=== PATIENT | female | born 2000 | race Caucasian/White ===

== ENCOUNTER 2023-01-20 08:41 | Emergency (ER) | payer BC, OTHER, SELFPAY ==
[2023-01-20 09:00] VITALS: BP 131/79; PULSE 76; RESP 18; TEMP 36.8; O2SAT 99; BMI 21.7
--- NOTE | 2023-01-20 09:06 | EXP.UTC ---
Discharge Plan Disposition Patient Disposition: Home, Self-Care Condition: Good Prescriptions Prescriptions: New azithromycin 250 mg tablet See Rx Instructions .ROUTE .COMPLEX Qty: 6 0RF Rx Instructions: For 250 mg dose pack: take 500 mg today (day 1), then 250 mg for 4 days (days 2-5). Stop Clindamycin Referrals Follow up/Referrals: Jama Carrera MD [Primary Care Provider] - See instructions Activity Restrictions/Add. Instructions Additional Instructions/Restrictions: If symptoms persist or worsen follow up with PCP. Clinical Impressions Clinical Impression: Strep pharyngitis Instructions Patient Instructions: DI for Strep Throat Discharge ED Provider: Liana Siddiqi [facility] HPI General Stated complaint: sore throat Time Seen by Provider: 01/20/23 08:59 History of Present Illness Provider Complaint: Pt relates that she has been taking Clindamycin for the past 5 days without any improvements to her strep symptoms. She relates that she went to the [facility] in [place] and tested positive for strep. She states that she has been taking the antibiotic as prescribed but continues to have sore throat. She denies rash or fever. Related Data Previous Rx's Medication Instructions Recorded azithromycin 250 mg tablet See Rx Instructions PO .COMPLEX #6 01/20/23 tabs Allergies Allergy/AdvReac Type Severity Reaction Status Date / Time No Known Allergies Allergy Verified 01/20/23 09:10 [facility] Disclaimer: The information contained in this section may have been updated after the patient was seen, as this information can be updated by other users. Social History Smoking Status: Never smoker alcohol intake: current current occupational status: employed Travel in the last 8 weeks: None ROS Obtained: Yes All systems reviewed & no additional complaints except as documented Constitutional Constitutional: Reports system reviewed and no additional complaints, except as documented Eyes Eyes: Reports system reviewed and no additional complaints, except as documented ENT Ears, Nose, Mouth, and Throat: Reports system reviewed and no additional complaints, except as documented, Reports as per HPI, Reports neck pain, Reports odynophagia and Reports sore throat Cardiovascular Cardiovascular: Reports system reviewed and no additional complaints, except as documented Respiratory Respiratory: Reports system reviewed and no additional complaints, except as documented Gastrointestinal Gastrointestingal: Reports system reviewed and no additional complaints, except as documented and odynophagia Genitourinary Female Genitourinary: Reports system reviewed and no additional complaints, except as documented Musculoskeletal Musculoskeletal: Reports system reviewed and no additional complaints, except as documented and Reports neck pain Integumentary/Breasts Skin/Breast: Reports system reviewed and no additional complaints, except as documented Neurologic Neurologic: Reports system reviewed and no additional complaints, except as documented Endocrine Endocrine: Reports system reviewed and no additional complaints, except as documented Hematologic/Lymphatic Henatologic/Lymphatic: Reports system reviewed and no additional complaints, except as documented Allergic/Immunologic Allergic/Immunologic: Reports system reviewed and no additional complaints, except as documented Physical Exam General General appearance: alert and in no apparent distress Head Head exam: atraumatic and normocephalic Eye Eye exam: Present normal appearance Expanded ENT Exam External ear exam: Present normal external inspection Nasal speculum exam: Bilateral: normal Mouth exam: Present normal external inspection Teeth exam: Present normal inspection Comment: soft palate petechia with ulcers noted in back of throat. Neck Neck exam: Present normal inspection Chest Chest inspection: Present normal inspection and symmetric chest wall
[2023-01-20 09:10] VITALS: BP 131/79; PULSE 76; RESP 18; TEMP 36.8; O2SAT 99
== END 2023-01-20 09:13 | disposition home or self-care (01) ==
PROVIDERS: Emergency Provider Nurse Practitioner Family; PCP Family Medicine
DX: J02.0 Streptococcal pharyngitis (principal)
CPT/HCPCS: 99204; 99212; G0463

== ENCOUNTER → 2023-04-27 12:14 | Outpatient (CLI) | payer OTHER, SELFPAY ==
[2023-04-27 14:01] LABS: HCG,Quantitative 18047 mIU/ml (0-5.42)
== END ==
PROVIDERS: PCP Family Medicine; Visit Provider Obstetrics & Gynecology
DX: Z34.91 Encounter for supervision of normal pregnancy, unspecified, first trimester (principal)
CPT/HCPCS: 36415; 84144; 84702

== ENCOUNTER → 2023-05-16 10:44 | Outpatient (CLI) | payer OTHER, SELFPAY ==
[2023-05-16 11:33] LABS: Basophils % 0.1 % (0.1-2.0); Eosinophils # 0.1 K/mm3 (0.0-0.4); Eosinophils % 0.6 % (0.1-12.0); Hematocrit 39.5 % (37.0-47.0); Hemoglobin 12.8 g/dL (12.2-16.2); Lymphocytes # 1.2 K/mm3 (0.7-4.5); Lymphocytes % 14.2 % (10-50); Mean Corpuscular HGB Conc 32.4 g/dL (31.8-35.4); Mean Corpuscular Hemoglobin 27.7 pg (27.0-31.2); Mean Corpuscular Volume 85.4 fl (81-99); Monocytes # 0.4 K/mm3 (0.1-1.0); Monocytes % 4.2 % (1.7-9.3); Neutrophils # 6.9 K/mm3 (1.8-7.8); Neutrophils % 80.9 % (37.0-80.0); Platelet Count 248 K/mm3 (142-424); Red Blood Count 4.63 M/mm3 (4.20-5.40); Red Cell Distribution Width 14.1 % (11.5-17.5); White Blood Count 8.6 K/mm3 (4.8-10.8)
[2023-05-17 06:13] LABS: Rubella Antibodies, IgG 4.69 index (Immune >0.99)
[2023-05-17 20:32] LABS: Rapid Plasma Reagin Ab Titer Non Reactive titer (NonRea<1:1)
[2023-05-18 12:45] LABS: HIV Screen 4th Generation wRfx Non Reactive
[2023-05-18 12:46] LABS: Hepatitis B Surface Antigen Negative; Hepatitis C Antibody Non Reactive
== END ==
PROVIDERS: PCP Family Medicine; Visit Provider Obstetrics & Gynecology
DX: Z34.91 Encounter for supervision of normal pregnancy, unspecified, first trimester (principal); Z3A.01 Less than 8 weeks gestation of pregnancy
CPT/HCPCS: 36415; 85025; 86593; 86703; 86762; 86850; 87086; 87088; 87186; 87340; 87380; G0432

== ENCOUNTER → 2023-05-16 16:34 | Outpatient (CLI) | payer OTHER, SELFPAY | PROVIDERS: Visit Provider Obstetrics & Gynecology | DX: Z34.90 Encounter for supervision of normal pregnancy, unspecified, unspecified trimester (principal) ==

== ENCOUNTER → 2023-08-11 12:57 | Outpatient (CLI) | payer OTHER, SELFPAY ==
--- NOTE | 2023-08-11 12:57 | US_ITS ---
PROCEDURE: US OB /MATERNAL DETAIL CLINICAL INDICATION: 20 week anatomy scan COMPARISON: No exams were available for comparison FINDINGS: Transabdominal sonographic images of the pelvis were obtained. From her established due date she is 20 weeks 2 days. Single viable intrauterine gestation. Cephalic position. Placenta: Posteriorplacenta grade 1. There is an average amount of fluid. MVP 3.8 cm. The cervix appears satisfactory. Closed and measuring 3.85 cm in length. Complete survey performed and was unremarkable on the submitted images as in PACS. No discrete anomalies identified on survey imaging by technologist. Active fetus. Three-vessel cord with satisfactory umbilical cord insertion. 4- chamber heart noted. Situs, aortic arch, LVOT, RVOT, three-vessel view appear normal. Survey of brain & ventricles Unremarkable. Cerebellum, thalamus, choroid plexus, cisterna magna appear normal. Face and neck survey unremarkable. Profile, nasion, lips and nose appeared normal. Diaphragm and chest views unremarkable. Abdomen: Both kidneys noted and unremarkable. Stomach and bladder noted and satisfactory. Spine: Survey of the spine satisfactory with no anomalies identified nor imaged. Cervical, thoracic, lower spine appear normal. Both arms and legs noted. Amniotic Fluid: Adequate. Measurements: Average ultrasound age 21weeks 0 days. Estimated due date by ultrasound age 0512/22/2023. Estimated weight 372g BPD = 21weeks 0 days HC = 21weeks 2days AC = 20weeks 6days FL = 20weeks 4days Growth Percentile= 70 Heart Rate = 144bpm Cerebellum = 20weeks 1day Humerus = 20weeks 5days HC/AC is 1.21 FL/BPD is 0.68 FL/AC is 0.21 IMPRESSION: 1. Viable fetus in the cephalic presentation with a posterior placenta grade 1. 2. The fluid is within normal limits. 3. Anatomical scan appears normal. 4. biometry is consistent with the dates. Dictated by: Barak Barnhart MD 08/13/2023 11:02 Barak Barnhart MD in [place] 08/13/2023 11:02
== END ==
LOC: RAD 12:57
PROVIDERS: PCP Family Medicine; Visit Provider Obstetrics & Gynecology
DX: Z34.92 Encounter for supervision of normal pregnancy, unspecified, second trimester (principal); Z3A.20 20 weeks gestation of pregnancy
CPT/HCPCS: 76811

== ENCOUNTER 2023-09-22 08:29 | Outpatient (CLI) | payer OTHER, SELFPAY ==
[2023-09-22 09:13] LABS: Basophils % 0.2 % (0.1-2.0); Eosinophils # 0.1 K/mm3 (0.0-0.4); Eosinophils % 0.8 % (0.1-12.0); Hematocrit 32.2 % (37.0-47.0); Hemoglobin 11.1 g/dL (12.2-16.2); Lymphocytes # 1.6 K/mm3 (0.7-4.5); Lymphocytes % 12.8 % (10-50); Mean Corpuscular HGB Conc 34.5 g/dL (31.8-35.4); Mean Corpuscular Hemoglobin 30.3 pg (27.0-31.2); Mean Corpuscular Volume 87.7 fl (81-99); Mean Platelet Volume 8.1 fl (7.4-10.4); Monocytes # 0.5 K/mm3 (0.1-1.0); Monocytes % 4.2 % (1.7-9.3); Platelet Count 220 K/mm3 (142-424); Red Blood Count 3.67 M/mm3 (4.20-5.40); Red Cell Distribution Width 14.2 % (11.5-17.5); White Blood Count 12.2 K/mm3 (4.8-10.8)
[2023-09-22 09:24] LABS: Glucose,Fasting 82 mg/dl (74-100)
[2023-09-22 12:25] LABS: Glucose 1 Hour 129 mg/dL (74-100)
== END 2023-09-22 23:59 ==
LOC: LAB 08:30
PROVIDERS: PCP Family Medicine; Visit Provider Obstetrics & Gynecology
DX: Z34.92 Encounter for supervision of normal pregnancy, unspecified, second trimester (principal); Z3A.26 26 weeks gestation of pregnancy
CPT/HCPCS: 36415; 82951; 85025

== ENCOUNTER 2023-11-17 08:52 | Outpatient (CLI) | payer OTHER, SELFPAY ==
--- NOTE | 2023-11-17 08:53 | US_ITS ---
PROCEDURE: US OB BIOPHYSICAL PROFILE CLINICAL INDICATION: LGA and Hypertension in COMPARISON: US US OB /MATERNAL DETAIL from 08/11/2023 FINDINGS: Transabdominal sonographic images of the uterus were obtained. From her established due date she is 34weeks 2days. The following parameters are obtained: Viable Fetus in the cephalic presentation with a posterior placenta grade 2. Average ultrasound age is 35weeks 1day Estimated weight 2,519g, 5 lb 9 oz. Measurements: heart Rate = 132bpm BPD = 35weeks 6days, 87 percentile HC = 35weeks 4days, 45 percentile AC = 34weeks 6days, 70 percentile FL = 34weeks 1day, 36 percentile HC/AC is 1.02 FL/BPD is 0.75 FL/AC is 0.21 60 percentile Amniotic fluid index: 13.65cm, MVP 4.54 cm. Qualitative AFV:2 Breathing movements: 2 Gross Body Movements: 2 Tone: 2 Biophysical profile score: 8 No obvious anomalies evident.Kidneys, bladder, stomach, four-chamber heart, three-vessel cord appear normal. The right adrenal gland appears prominent. IMPRESSION: 1. Viable fetus in the cephalic presentation with a posterior placenta grade 2. 2. The fluid is within normal limits with an amniotic fluid index of 13.65 cm, MVP 4.54 cm. 3. Biophysical profile is 8/8 with good breathing movement and movement seen. 4. There has been good interval growth. The fetus is average size measuring 60th percentile. 5. There is a prominence of the right adrenal gland and the linux administrator should be made aware of this for follow-up. Consider an MFM consult. Dictated by: Barak Barnhart MD 11/17/2023 12:34 Barak Barnhart MD in [place] 11/17/2023 12:34
== END 2023-11-17 23:59 ==
LOC: RAD 08:53
PROVIDERS: PCP Family Medicine; Visit Provider Internal Medicine
DX: O36.63X0 Maternal care for excessive fetal growth, third trimester, not applicable or unspecified (principal); O10.913 Unspecified pre-existing hypertension complicating pregnancy, third trimester; Z3A.34 34 weeks gestation of pregnancy
CPT/HCPCS: 76816; 76819

== ENCOUNTER 2023-11-23 08:52 | Outpatient (RCR) | payer OTHER, SELFPAY ==
--- NOTE | 2023-11-23 12:20 | HMH.PTOPEV ---
PT Outpatient Evaluation Rehab PT Outpatient Evaluation Start: 11/23/23 08:59 Freq: Status: Active Protocol: Document 11/23/23 08:59 FERNANDACONCEPCION (Rec: 11/23/23 12:20 CAMERON [id number]) E-signed By Jolene Reid, PT Outpatient Therapy Subjective History Subjective History Pt is a 22 y/o female who reports to PT for sciatic pain affecting . Pt reports she is 35 weeks , denies complications with . Pt reports insidious onset of left-sided low back pain that radiates into her left posterior hip to the back of her knee 2-3 weeks ago when she started nesting. Pt also reports intermittent numbness/tingling of her left foot. Pt reports pain is intermittent and aggravated by prolonged standing, walking, squatting and bending forward. Pt reports she just got a belly band which does seem to assist with pain. Pt states she returns to her OBGYN on Monday for a follow-up visit. Medical History: Hypertension, Depression, Anxiety Special tests: + slump test L New diagnosis of cancer in past 12 No months? Chief Complaint Pain,Paresthesia Symptom Type Ache,Sharp,Numbness,Tingling, Shooting Symptoms Relieved By Rest/Positioning,Heat,Brace/ Support Symptoms Aggravated By Sitting,Standing,Bending/ Stooping,Physical Activity, Walking Current Functional Limitations Housework,Sleeping,Standing, Sitting,Squatting,Walking Symptom Description Intermittent Level of pain today (0-10) 3 Pain scale - at its best (0-10) 0 Pain scale - at its worst (0-10) 10 Lumbopelvic Eval Posture Lumbar Spine Posture Standing Position Increased Lordosis Palapation tenderness bilateral lumbar spinal tenderness Yes buttock tenderness Yes: piriformis, glute med/min Lumbar/Sacral Palpation Findings Tenderness Accessory Movement L-spine Vertebrae Accessory Movements Central P/A [place],Left P/A that Elicit Symptoms [place] L4 bilateral L5 bilateral S1 bilateral Range of Motion Lumbar Spine Active Flexion Range of 60 Motion (degrees) Lumbar Spine Active Extension Range of 25 Motion (degrees) Left Lumbar Spine Lateral Flexion Active 15 Range of Motion (degrees) Right Lumbar Spine Lateral Flexion 15 Active Range of Motion (degrees) Manual Muscle Test Bilateral Knee Extension Strength Grade 5 Normal Knee Flexion Strength Grade 5 Normal Hip Flexion Strength Grade 5 Normal Hip Abduction Strength Grade 4 Good Hip Adduction Strength Grade 4 Good Hip Extension Strength Grade 4 Good Ankle Dorsiflexion Strength Grade 5 Normal Altered Sensation Comment equal and intact to light touch sensation bilaterally Oswestry Index Section 1 Pain Intensity The pain comes and goes and is moderate Section 2 Personal Care (Washing,Dresing) increase the pain, but I manage not to change my way of doing it Section 3 Lifting I can lift heavy weights, but it gives me extra pain Section 4 Walking I cannot walk at all without increasing pain Section 5 Sitting I can sit in any chair for as long as I like Section 6 Standing I have some pain on standing, but it does not increase with time Section 7 Sleeping I get pain in bed, but it does not prevent me from sleeping well Section 8 Social Life My social life is normal and gives me no extra pain Section 9 Traveling I get some pain when traveling , but none of my usual forms of travel m Section 10 Changing Degreee of Pain My pain is neither getting better or worse Score and Risk Level Oswestry Sc 16 Oswestry Risk Level Moderate Disability Outpatient Therapy Assessment Impairments Problems/Impairmments Palpation Tenderness,Impaired Range of Motion,Impaired Strength,Impaired Walking, Impaired Standing,Impaired Sitting,Impaired Household Care,Impaired Squatting, Impaired Bending,Subjective C/ O Pain,Impaired Self Care/Self Management Prognosis Rehab Potential Good Comment Pt provided with HEP to perform independently. Pt instructed to return to PT clinic if pain does not improve with HEP or worsens. Clinical Impression Consistent with Diagnosis Yes Short Term Goals Number of Weeks 2 Improve Self Care/Self Management Yes Patient to be Ind w/ HEP Yes Claims Counsel Goals Number of Weeks 4 Improve Oswestry Score Yes: 10 or less to improve overall QOL Decrease Subjective C/O Pain Yes: Improve pain at worst to 4/10 to improve overall QOL Outpatient Therapy Plan of Care Treatment Plan May Include Therapeutic Exercise Including Home Yes Exercise Program Manual Therapy Techniques Yes Neuromuscular Re-education Yes Therapeutic Activities to Return to Yes Previous Functional/Work Level ADL/Self Care Education Yes Thermal Modalities Yes Massage Yes Eval/Re-Eval Yes Frequency Times per week 1-2 Duration Number of Weeks 4 Addendums This patient is a candidate for social No or vocational rehab? Patient/Guardian verbally acknowledges Yes understanding of treatment program and consents to further treatment? Patient/Guardian verbally acknowledges Yes understanding of diagnosis, prognosis and goals for treatment? Eval Complexity PT Charges 74025 - Low Complexity Shoulder/Elbow Eval Shoulder Objective Measurements Elbow Objective Measurements PHYSICIAN CERTIFICATION: I certify the specified therapy services for Faviola Rodriguez are required, authorized, and reviewed every 30 days.
== END 2023-11-23 10:00 | disposition home or self-care (01) ==
LOC: PT 08:52
PROVIDERS: Visit Provider Obstetrics & Gynecology
DX: O26.893 Other specified pregnancy related conditions, third trimester (principal); Z3A.35 35 weeks gestation of pregnancy; M54.32 Sciatica, left side
CPT/HCPCS: 97110; 97163

== ENCOUNTER 2023-11-30 18:00 | Outpatient (CLI) | payer OTHER, SELFPAY | END 2023-11-30 23:59 | LOC: LAB.DROPOF 12-01 08:48 | PROVIDERS: PCP Obstetrics & Gynecology; Visit Provider Obstetrics & Gynecology | DX: O26.893 Other specified pregnancy related conditions, third trimester (principal); Z3A.36 36 weeks gestation of pregnancy | CPT/HCPCS: 86403 ==

== ENCOUNTER 2023-12-14 09:01 | Inpatient (IN) | payer OTHER, SELFPAY ==
[2023-12-14] VITALS (8 sets, daily range): BP systolic 138–155; BP diastolic 91–100; PULSE 98–115; RESP 17–20; TEMP 36.4–37.1; O2SAT 97–98; BMI 29.8; BMI 29.9
[2023-12-14 08:15] LABS: Microscopic, Urine URINE MICROSCOPIC (MICROSCOPIC)
[2023-12-14 08:18] LABS: Appearance,Urine CLEAR (Clear); Bilirubin,Urine Negative (Negative); Blood, Urine Negative (Negative); Color,Urine YELLOW (Yellow); Glucose,Urine (UA) Negative (Negative); Ketones,Urine Negative (Negative); Leukocyte Esterase,Urine Negative (Negative); Nitrate,Urine Negative (Negative); Protein,Urine Negative (Negative); Specific Gravity, Urine 1.025 (1.005-1.030); Urobilinogen,Urine 0.2 EU/dl (0.2)
[2023-12-14 08:37] LABS: Fetal Membrane Rupture (Rapid) Positive (Negative)
[2023-12-14 08:51] LABS: Bacteria,Urine Trace /lpf; Mucus,Urine Trace /lpf; RBC,Urine Occasional #/hpf (0-3)
[2023-12-14 08:52] LABS: Amphetamine/Metha Screen,Urine Negative ng/ml (<1000); Benzodiazepines Screen,Urine Negative ng/ml (<200)
[2023-12-14 08:53] LABS: Barbiturates Screen,Urine Negative ng/ml (<200); Methadone Screen,Urine Negative ng/ml (<300)
[2023-12-14 08:54] LABS: Cannabinoid Screen,Urine Negative ng/ml (<50)
[2023-12-14 08:55] LABS: Cocaine Screen,Urine Negative ng/ml (<300); Opiate Screen,Urine Negative ng/ml (<300)
[2023-12-14 08:56] LABS: Phencyclidine Screen,Urine Negative ng/ml (<25)
[2023-12-14] MEDS: NIFEdipine XL 30MG TABLET 30 MG PO (08:56)
--- NOTE | 2023-12-14 09:22 | EXP.HP ---
History of Present Illness *Admission Date: 12/14/23 *Reason for visit:: Labor *History of present illness: Faviola Rodriguez is a 22-year-old who presented to labor and delivery at 38w1d gestation. STEPHANY: 12/27/23 based on LMP c/w 8wk US. She came in this morning secondary to leakage of clear fluid around 630 this morning. Patient states that she feels like she is having about 2 contractions every 10 minutes. This has been complicated by a cardiac arrhythmia which she took 25 mg of metoprolol daily, and depression which was well-controlled with desvenlafaxine 50 mg daily. Her family history is significant for a history of hypospadias and her father and her brother. On presentation patient endorsed good movement and denies vaginal bleeding. A+, antibody negative, rubella immune, hepatitis B negative, hepatitis C negative, RPR negative, HIV negative, gonorrhea and Chlamydia negative, rubella immune, NILM on the Pap smear. 1 hour GTT: 129 GBS negative Growth ultrasound 11/17/23 at 34w2d: vertex, with a posterior grade 2 placenta. EFW was 2519 g, 5 pounds 9 ounces, 60th percentile.. BPD: 87%, HC: 45%, AC: 70%, FL: 36%. MVP: 4.54 cm. BPP: 03/28 [facility] visit for prominent adrenal gland and chronic hypertension -[facility] states that adrenal gland appears normal but recommend an abdominal ultrasound postdelivery for evaluation Visit on 11/29/2023 at 36 weeks and 0 days gestation. EFW: 2970 g, 6 pounds 5 ounces, 52nd percentile. Three-vessel cord, posterior placenta, MVP: 6.3 cm. BPP: 03/28. [facility] Disclaimer: The information contained in this section may have been updated after the patient was seen, as this information can be updated by other users. Medical History Hypertension Depression Anxiety Surgical History History of placement of ear tubes History of tonsillectomy and adenoidectomy Family History Grandfather Hypertension Father Hypospadias Brother Hypospadias Other Cancer Thyroid disorder Social History (Reviewed 12/08/23 @ 11:32 by Laura Gamboa [facility]) Smoking Status: Never smoker alcohol intake: never substance use type: denies use current occupational status: student Travel in the last 8 weeks: None Review of Systems Review of Systems Review of systems (narrative): Review of Systems Constitutional: Denies fever, chills, and sweats Eyes: Denies vision change/ pain Respiratory: Denies cough and shortness of breath Cardiovascular: Denies chest pain and lightheadedness Gastrointestinal: Admits abdominal pain/tightening with contractions. Denies nausea, vomiting. Genitourinary: Denies dysuria and incontinence. Endorses leakage of fluid. Denies vaginal bleeding Musculoskeletal: Denies shoulder pain and back pain Neurological: Denies change in speech or headaches Meds Home Medications and Allergies Home Medications Medication Instructions Recorded Confirmed Type desvenlafaxine succinate 50 mg 50 mg PO DAILY 04/12/23 12/08/23 History tablet,extended release 24 hr [id number] carb-vit K 1 tab PO DAILY 05/16/23 12/08/23 History 18 mg iron-400 mcg-500 mg tablet (One-A-Day Womens Formula) aspirin 81 mg tablet,delayed 81 mg PO DAILY 08/25/23 12/08/23 History release (Adult Low Dose Aspirin) metoprolol succinate 50 mg 25 mg PO DAILY 08/25/23 12/08/23 History tablet,extended release 24 hr New Prescriptions to Start Prescriptions: Allergies Allergy/AdvReac Type Severity Reaction Status Date / Time No Known Allergies Allergy Verified 12/08/23 11:31 Exam Data for Last 24 hours Vital signs and Labs for Last 24 Hours: Laboratory Results - last 24 hr 12/14/23 08:08: Urine Color Yellow, Urine Appearance Clear, Urine pH 6.0, Ur Specific [place] 1.025, Urine Protein Negative, Urine Glucose (UA) Negative, Urine Ketones Negative, Urine Blood Negative, Urine Nitrate Negative, Urine Bilirubin Negative, Urine Urobilinogen 0.2, Ur Leukocyte Esterase Negative, Urine RBC Occasional, Urine WBC 3-5, Ur Squamous Epith Cells 3-5, Urine Bacteria Trace, Urine Mucus Trace, Membrane Rupture Positive A, Urine Opiates Screen Negative, Urine Methadone Screen Negative, Ur Barbituates Screen Negative, Ur Phencyclidine Scrn Negative, Ur Amphetamines Screen Negative, U Benzodiazepines Scrn Negative, Urine Cocaine Screen Negative, U Marijuana (THC) Screen Negative I & O for Last 24 hours: Intake & Output 12/11/23 12/12/23 12/13/23 12/14/23 23:59 23:59 23:59 23:59 Weight 158 lb Narrative: General: patient is alert oriented in no acute distress and responds appropriately to questions. HEENT: NCAT, EOMI, moist mucous membranes, neck supple with full ROM Cardiovascular: RRR +S1/S2, no murmurs or rubs Pulmonary: Clear to auscultation bilaterally, nonlabored breathing, symmetric chest rise Abdominal: Gravid abdomen appropriate for gestation. No guarding, rebound, or tenderness noted. SVE: 1.5/40/-3/posterior/moderate. Extremities: trace edema, no tenderness or cyanosis noted Skin: Normal turgor, intact, warm. Negative for erythema, pallor, petechia, or lesions Neurologic: Negative for sensory or motor deficit Psychiatric: Normal affect, normal thought process, good judgment and insight, no depression or anxious mood appreciated. *Routine HEENT Exam Head: Present normocephalic and atraumatic Eye: Present EOMI, PERRL and normal accommodation; Absent conjunctival icterus, scleral injection, nystagmus or exophthalmos ENT: Present mucous membranes moist *Routine Respiratory Exam Respiratory: Present CTA bilaterally, normal respiratory effort, able to speak in complete sentences and symmetric chest movement; Absent accessory muscle use, decreased breath sounds, rales, respiratory distress, wheezes, distant breath sounds or diminished air movement *Routine Cardiovascular Exam Cardiovascular: Present RRR, Normal S1 and Normal S2; Absent murmur or gallop *Routine Abdominal Exam Abdominal: Present soft and normoactive bowel sounds; Absent tenderness, distended, rebound or guarding *Routine Rectal Exam Rectal:: deferred *Routine Genitalia Exam Genitalia:: normal female Assessment and Plan *Assessment and plan (1) Premature rupture of membranes: Status: Acute Qualifiers: PROM onset of labor timing: unspecified duration between rupture of membranes and onset of labor PROM gestational age: full term Qualified Code(s): O42.92 - Full-term premature rupture of membranes, unspecified as to length of time between rupture and onset of labor Category: Medical Code(s): O42.90 - Premature rupture of membranes, unspecified as to length of time between rupture and onset of labor, unspecified weeks of gestation (2) 38 weeks gestation of : Status: Acute Category: Medical Code(s): Z3A.38 - 38 weeks gestation of (3) SROM (spontaneous rupture of membranes): Status: Acute Category: Medical (4) Gestational hypertension: Status: Acute Qualifiers: Trimester: third trimester Qualified Code(s): O13.3 - Gestational [-induced] hypertension without significant proteinuria, third trimester Category: Medical Code(s): O13.9 - Gestational [-induced] hypertension without significant proteinuria, unspecified trimester (5) Cardiac arrhythmia: Status: Acute Category: Medical Code(s): I49.9 - Cardiac arrhythmia, unspecified (6) Anxiety: Status: Acute Category: Medical Code(s): F41.9 - Anxiety disorder, unspecified (7) Depression: Status: Acute Category: Medical Code(s): F32.A - Depression, unspecified Plan #38 weeks gestation #Premature rupture membranes -Monitor vitals -Admit to L&D for labor induction/augmentation -Initiate induction with high-dose Pitocin protocol at 3x 3 -External FHR and TOCO monitor -GBS negative/ Blood type: A+ -Hemoglobin: 10.7, Plt: 248 -Plan for epidural -Anticipate vaginal delivery of Male infant: Channing Beard -Plans to breast-feed -Undecided on contraception #Gestational hypertension #Cardiac arrhythmia -Previously taken metoprolol 25 mg throughout -Blood pressures were elevated on admission but did not meet criteria for severe range pressures -We will continue to follow blood pressures closely -PIH labs obtained -Initiate 30 mg of nifedipine daily -Patient was counseled extensively on preeclampsia and magnesium. She does not meet requirements for magnesium at this time but we will continue to follow her closely #Depression -Continue home medication -We will follow-up closely for depression exacerbation #Prominent adrenal gland -Recommend abdominal ultrasound of the infant postdelivery #Family history of hypospadias -Patient's father and brother have a history of hypospadias noted post delivery
[2023-12-14 09:51] LABS: Basophils % 0.3 % (0.1-2.0); Eosinophils # 0.1 K/mm3 (0.0-0.4); Eosinophils % 0.9 % (0.1-12.0); Hemoglobin 10.7 g/dL (12.2-16.2); Lymphocytes # 1.3 K/mm3 (0.7-4.5); Lymphocytes % 14.2 % (10-50); Mean Corpuscular HGB Conc 32.5 g/dL (31.8-35.4); Mean Corpuscular Hemoglobin 27.1 pg (27.0-31.2); Mean Corpuscular Volume 83.6 fl (81-99); Mean Platelet Volume 9.5 fl (7.4-10.4); Monocytes # 0.4 K/mm3 (0.1-1.0); Monocytes % 4.5 % (1.7-9.3); Neutrophils # 7.4 K/mm3 (1.8-7.8); Neutrophils % 80.1 % (37.0-80.0); Platelet Count 248 K/mm3 (142-424); Red Blood Count 3.95 M/mm3 (4.20-5.40); Red Cell Distribution Width 15.5 % (11.5-17.5); White Blood Count 9.3 K/mm3 (4.8-10.8)
[2023-12-14] MEDS: DEXTROSE 5%-LACTATED RINGERS 1,000 ML 125 ML IV (09:53)
[2023-12-14] MEDS: LACTATED RINGERS 1000ML 1,000 ML 500 ML IV (09:53)
[2023-12-14] MEDS: OXYTOCIN/RINGERS LACTATE 30 UNITS/500 ML BAG IV (10:02)
[2023-12-14 10:19] LABS: Alanine Aminotransferase 29 U/L (12-78); Albumin Level 3.4 g/dl (3.5-5.0); Albumin/Globulin Ratio 1.3 (1.1-1.8); Alkaline Phosphatase 227 U/L (38-126); Aspartate Amino Transferase 31 U/L (14-36); Bilirubin,Total 0.3 mg/dl (0.2-1.3); Blood Urea Nitrogen 10 mg/dl (7-17); Calcium 9.7 mg/dl (8.4-10.2); Carbon Dioxide 26 mmol/L (22.0-30.0); Chloride 106 mmol/L (98-107); Creatinine Clearance Estimated 143 mL/min (50-200); Estimated Glomerular Filt Rate 105 ml/min (>60); GFR (African American) 127 ML/MIN (>60); Globulin 2.7 g/dL (1.3-3.2); Glucose 78 mg/dl (74-100); Sodium 136 mmol/L (136-145); Total Protein,Serum 6.1 g/dl (6.3-8.2)
--- NOTE | 2023-12-14 13:04 | P.CONPHA_ITS ---
Pharmacy Intervention Comments: MEDICATION RECONCILIATION COMPLETED ON PATIENT USING EXTERNAL FILL HISTORY FROM PHARMACY AND LIST FROM CASE MANAGEMENT SOCIAL WORKER OFFICE. -STEVE ROSENBERGD
--- NOTE | 2023-12-14 13:04 | HMH.PHAINT1 ---
Pharmacy Intervention Comments: MEDICATION RECONCILIATION COMPLETED ON PATIENT USING EXTERNAL FILL HISTORY FROM PHARMACY AND LIST FROM DIRECTOR OPERATIONS BROADCAST OFFICE. -STEVE ROSENBERGD
--- NOTE | 2023-12-14 13:48 | EXP.LABOR.NO ---
Labor Note Subjective: Date: 12/14/23 Time: 13:48 irregular contractions Comment:: Patient is up to 18 milliunits of Pitocin. She states that she is very comfortable and not feeling contractions. Her cervical exam is unchanged. Patient was counseled and decision was made to discontinue Pitocin and give 1 dose of 50 mcg p.o. Cytotec Objective: NST:: Reactive Contractions:: infrequent Cervical Dilation:: 1 Effacement:: 50% Station: -3 Membranes: ruptured and spontaneously ruptured Fetus: Monitoring?: Yes monitoring type:: External Plan: Anesthesia for epidural?: No Plan for ?: No Continue to monitor?: Yes Start pushing?: No
[2023-12-14] MEDS: miSOPROStol 100MCG TABLET 50 MCG PO ×2 (14:15→20:11)
[2023-12-15] VITALS (9 sets, daily range): BP systolic 134–159; BP diastolic 71–81; PULSE 71–123; RESP 16–18; TEMP 36.4–36.8; O2SAT 98–100
[2023-12-15] MEDS: PHA TO NURSING INSTRUCTION 1 EACH NOTAPPLIC (01:32)
[2023-12-15] MEDS: BUTORPHANOL TARTRATE 2 MG/ML VIAL 1 MG IV ×2 (01:32→04:44)
[2023-12-15] MEDS: OXYTOCIN/RINGERS LACTATE 30 UNITS/500 ML BAG IV (03:09)
[2023-12-15] MEDS: DEXTROSE 5%-LACTATED RINGERS 1,000 ML 125 ML IV (03:09)
--- NOTE | 2023-12-15 06:41 | EXP.ANES.CKL ---
[facility] Disclaimer: The information contained in this section may have been updated after the patient was seen, as this information can be updated by other users. Medical History Hypertension Depression Anxiety Surgical History History of placement of ear tubes History of tonsillectomy and adenoidectomy Family History Grandfather Hypertension Father Hypospadias Brother Hypospadias Other Cancer Thyroid disorder Social History (Updated 12/14/23 @ 20:41 by Nena Keller RN) Smoking Status: Never smoker alcohol intake: never substance use type: denies use current occupational status: employed Travel in the last 8 weeks: None [facility] Anesthesia Checklist Patient Identification Patient Identification: Arm Band Structural Data Admitted From: Inpatient Planned Operative Procedure/s: Labor Epidural Consent for Planned Operative Procedure(s) Verified: Yes Verified Documents: History and Physical NPO Status Verified Time NPO: 00:00 Additional verifications Anesthesia Reactions: No Airway Assessment Dentition: Good Dentition Neurological Assessment Level of Consciousness: Awake, Alert and Appropriate Anesthesia Plan Anesthesia Risk discussed: Yes Anesthesia Plan: Verified ASA Class: II Anesthesia Type: Epidural
[2023-12-15] MEDS: NIFEdipine XL 30MG TABLET 30 MG PO (09:02)
--- NOTE | 2023-12-15 09:15 | EXP.LABOR.NO ---
Labor Note Subjective: Date: 12/15/23 Time: 09:15 regular contraction Comment:: Doing well. Regular contractions. Very good working epidural. There is a fore bag present that was ruptured revealed clear fluid Objective: NST:: Reactive Contractions:: every 2-3 minutes Cervical Dilation:: 8-9 Effacement:: 90% Station: -2 Membranes: ruptured Fetus: Monitoring?: Yes monitoring type:: External Assessment: Labor progressing?: Yes Cephalopelvic disproportion?: No Plan: Anesthesia for epidural?: Yes Plan for ?: No Continue to monitor?: Yes Start pushing?: No
--- NOTE | 2023-12-15 16:36 | P.PN_ITS ---
Labor Note Subjective: Date: 12/15/23 Time: 16:36 regular contraction Comment:: Patient has been pushing for approximately 2 hours with little to no descent. The infant was felt to be OT and this was verified with ultrasound. The was rotated to an OA position greater than 1 hour ago and continues to not descend into the pelvis. She is still around a 0 to +1 station and not appropriate for operative delivery. Objective: NST:: Reactive Contractions:: every 2-3 minutes Cervical Dilation:: 9-10 Effacement:: 100% Station: 0 Membranes: ruptured Fetus: Monitoring?: Yes monitoring type:: External Assessment: Cephalopelvic disproportion?: Yes Plan: Anesthesia for epidural?: Yes Plan for ?: Yes Continue to monitor?: Yes Continue pushing?: No Comment:: I extensively counseled the patient on delivery. I reviewed the risks to include bleeding, infection, and injury to the surrounding structures. I discussed that bleeding was typically able to be controlled with medications or surgically. The patient consented to blood transfusion if deemed medically necessary. Reviewed the very rare risk of a hysterectomy if bleeding was not able to be controlled. She recently had a temperature of 100.0 at 1616. She will be given 2 g of Ancef along with 500 mg of IV azithromycin for infection prophylaxis. I discussed the risk of injury to the surrounding s tructures to include but not limited to the bowels, bladder, ureters, reproductive organs, and neurovascular bundles. I discussed the risk of repeat delivery with future pregnancies especially since this was an indication for failure to descend/suspected CPD. The patient and her significant other both voiced understanding. I reviewed that these risks were slightly elevated given that she had been pushing for 2 hours as compared to a scheduled delivery. The patient voiced understanding. I also discussed with her that at this time the heart rate was very reassuring a nd reactive and if she desired to continue pushing for an additional 1 to 2 hours that would be appropriate. Patient desires primary delivery at this time. Of note at this time her urethral area is very very swollen. Her bilateral labia are also very swollen from pushing. The patient was counseled and she will be provided ice packs . We will continue to monitor closely for fever and infection.
[2023-12-15] MEDS: LACTATED RINGERS 1000ML 1,000 ML 999 ML IV (16:48)
[2023-12-15] MEDS: CEFAZOLIN SODIUM 2 GM in 0.9 % SODIUM CHLORIDE 100 ML IV (17:15)
[2023-12-15] MEDS: AZITHROMYCIN 500 MG in 0.9 % SODIUM CHLORIDE 250 ML 250 MG IV (17:15)
--- NOTE | 2023-12-15 18:21 | P.OP_ITS ---
Date of procedure: 12/15/23 Pre-op Diagnosis:: 1. 38 weeks 2days gestation, H[place] 2. Gestational Hypertension 3. Premature rupture of membranes, spontaneous, clear fluid 4. Prolonged rupture of membranes, greater than 24 hours 5. Cardiac arrhythmia 6. Depression 7. Prominent adrenal gland noted on ultrasound 8. Failure to descend 9. Suspected cephalopelvic disproportion 10. GBS negative 11. Rh+ Post-op Diagnosis:: 1. 38 weeks 2days gestation, [place] 2. Gestational Hypertension 3. Premature rupture of membranes, spontaneous, clear fluid 4. Prolonged rupture of membranes, greater than 24 hours 5. Cardiac arrhythmia 6. Depression 7. Prominent adrenal gland noted on ultrasound 8. Failure to descend 9. Suspected cephalopelvic disproportion 10. GBS negative 11. Rh+ Procedure performed:: Primary Delivery Surgeon:: Amanda Hahn DO Quality Control Supervisor(s):: Nicole Hdz DO FUNDING SPECIALIST:: Seda Delcid Anesthesia: epidural Estimated blood loss (mL): 650 Operative findings:: 1. Live viable male infant: Channing. Weight: 7pounds 3ounces. Apgars 8 and 9 at 1 and 5 minutes respectively 2. Normal-appearing fallopian tubes and ovaries bilaterally Operative note:: Medications: 2 g of Ancef, 500mg IV Azithromycin Summary: Procedure explained in its entirety. The patient was counseled on the risks and benefits of section including bleeding, vascular injury, infection, and injury to the surrounding structures. Hemorrhage requiring life saving blood transfusion resulting in blood born viral infection or allergic reaction was explained and the patient consented to blood transfusion. Possible need for further operative measures prolonging recovery time and hospitalization reviewed to include hysterectomy. Procedure explained in its entirety and patient had no further questions. Consented to procedure. The patient was taken back to the operating room where adequate epidural anesthesia was obtained. Pneumatic compression stockings applied to lower extremities. Above listed medications were administered for infection prophylaxis. She was placed in the dorsal supine position Urinary catheter was placed and found to be draining clear urine. The patients abdomen and vagina were prepped and draped in sterile fashion. Anesthesia was tested and and found to be adequate. A Pfannenstiel skin incision was made with the scalpel. Subcutaneous bleeding vessels were cauterized with the bovie. The incision was taken down to the fascia with the bovie. The fascia was knicked in the midline and sharply extended laterally. The superior aspect of the fascia was grasped with Lizet clamps and the rectus muscle was taken down with the Bovie. The rectus muscle was sharply dissected from the midline with Mayos. There is a s mall amount of bleeding to the left aspect of the rectus muscles which were made hemostatic with the Bovie. This process was repeated inferiorly. The rectus muscles were in the midline, peritoneum was identified and entered bluntly. Jl O retractor was placed and the bladder was noted to be out of the operative field. The was felt to be wedged in the pelvis so prior to making a uterine incision a sterile hand below was placed to elevate the head. The lower uterine segment was easily identified, sharply incised, and entered bluntly with the surgeon's index finger. Incision was then extended in a superior and inferior fashion by blunt separation. Membranes were ruptured revealing clear fluid. The fetus was in cephalic presentation. The head was carefully elevated out of the pelvis. Fundal pressure was applied when head was brought into incision. The infants head was delivered without difficulty. The shoulder and body followed without complication. The mouth and nose were suctioned with a bulb. The umbilical cord was clamped and cut. Infant was taken to warmer for evaluation. Cord blood was collected. The placenta was delivered via fundal massage and found to be normal and intact. 3 vessel cord was noted. IV Pitocin was initiated. Inside of the uterus was gently cleared of blood and clots with lap sponge. The hysterotomy was closed with 0 Vicryl in a running locked fashion. A second imbricating layer was placed with 0 Vicryl. The lower uterine segment was visualized and noted to be hemostatic. The ovaries and tubes were found to be normal. The posterior aspect of the uterus was cleared of blood clot with a damp lap sponge. The gutters were inspected bilaterally and cleared of blood and clots with lap sponges. The uterine incision was reinspected and hemostasis noted. Jl O retractor was removed. The peritoneum was reapproximated using a 0 Vicryl in a nonlocked running fashion. The fascia was closed in a running nonlocked fashion using 0 Vicryl x2 meeting right of midline. Fascia was noted as not having gaps or defects. The subcutaneous fat was closed with 2-0 Monocryl in a running nonlocked fashion. Skin was closed with the INSORB suture in a subcuticular fashion. Patient tolerated the procedure well and all counts were correct x3, per nursing. Condition: stable Disposition: PACU Specimens:: 1. Placenta Complications:: None
--- NOTE | 2023-12-15 18:51 | P.PNANES_ITS ---
[facility] Anesthesia Record Part I Anesthesia Record I Intake, IV Amount: 1,000 Hydration: Adequate Estimated blood loss (mL): 700 Urine output (mL): 200 Blood Products used (#): none Blood Pressure: 134/77 SaO2: 98 Pulse Rate: 123 Airway Patency: Patent Respiratory Rate: 18 Temperature: 98.2 F Patient is:: Awake (Talking) and Stable Stable to PACU at:: 18:33
[2023-12-15] MEDS: OXYTOCIN/RINGERS LACTATE 30 UNITS/500 ML BAG 40 UNITS IV ×2 (19:02→19:40)
[2023-12-15] MEDS: ACETAMINOPHEN 500MG TAB 1000 MG PO (19:42)
[2023-12-16] MEDS: KETOROLAC 30MG/ML VIAL 30 MG IV ×3 (00:44→12:00)
[2023-12-16] MEDS: ACETAMINOPHEN 500MG TAB 1000 MG PO ×5 (00:44→23:45)
[2023-12-16 07:09] LABS: Basophils % 0.2 % (0.1-2.0); Eosinophils % 0.2 % (0.1-12.0); Hematocrit 25.4 % (37.0-47.0); Hemoglobin 8.3 g/dL (12.2-16.2); Lymphocytes # 1.7 K/mm3 (0.7-4.5); Lymphocytes % 9.7 % (10-50); Mean Corpuscular HGB Conc 32.8 g/dL (31.8-35.4); Mean Corpuscular Hemoglobin 27.3 pg (27.0-31.2); Mean Corpuscular Volume 83.2 fl (81-99); Mean Platelet Volume 9.6 fl (7.4-10.4); Monocytes # 0.6 K/mm3 (0.1-1.0); Monocytes % 3.5 % (1.7-9.3); Neutrophils # 14.8 K/mm3 (1.8-7.8); Neutrophils % 86.4 % (37.0-80.0); Platelet Count 307 K/mm3 (142-424); Red Blood Count 3.06 M/mm3 (4.20-5.40); Red Cell Distribution Width 15.8 % (11.5-17.5); White Blood Count 17.1 K/mm3 (4.8-10.8)
[2023-12-16 07:19] LABS: MANUAL DIFFERENTIAL MANUAL DIFFERENTIAL (MANUAL DIFF)
[2023-12-16 07:55] VITALS: BP 138/81; PULSE 98; RESP 18; TEMP 36.8; O2SAT 99
[2023-12-16] MEDS: OXYCODONE 5MG IMMEDIATE RELEASE TABLET 5 MG PO ×3 (08:32→23:48)
[2023-12-16] MEDS: NIFEdipine XL 30MG TABLET 30 MG PO (08:32)
--- NOTE | 2023-12-16 08:32 | EXP.ACUTE.PN ---
Subjective *Date: 12/16/23 *Time: 08:32 Interval history: POD # s/p PLTCS Faviola is feeling well this morning. Pain controlled. Breast feeding. Lochia appropriate. Voiding without difficulty. Passing flatus. Tolerating regular diet. Denies fever/chills, chest pain and shortness of breath. No headaches, vision chagnes, lightheadedness/dizziness. Admits to mild lower extremity swelling. No calf pain. Ambulating well adl ib. Medical Exam Vital signs and Labs for Last 24 Hours: Vital Signs Temp Pulse Pulse Resp BP BP Pulse Ox 12/15/23 18:58 98.1 F 102 H 16 153/78 H 98 12/15/23 18:52 98.2 F 123 H 18 134/77 12/15/23 18:48 103 H 16 144/74 H 98 12/15/23 18:38 109 H 16 159/73 H 98 12/15/23 18:28 98.2 F 122 H 16 134/77 98 O2 Del Method 12/15/23 18:58 Room Air 12/15/23 18:52 12/15/23 18:48 Room Air 12/15/23 18:38 Room Air 12/15/23 18:28 Room Air Intake and Output 12/15/23 12/16/23 12/16/23 23:59 07:59 15:59 Intake Total 1000 / 1000 Output Total 1800 / 1800 Balance -800 / -800 Intake: Intake, Total IV Amount 1000 / 1000 Output: Output, Urine Amount 1800 / 1800 Laboratory Results - last 24 hr 12/14/23 09:35: Blood Type A Positive, Antibody Screen Negative, Crossmatch (AHG) See Detail 12/16/23 06:52: WBC 17.1 H D, RBC 3.06 L, Hgb 8.3 L, Hct 25.4 L, MCV 83.2, MCH 27.3, MCHC 32.8, RDW 15.8, Plt Count 307, MPV 9.6, Neut % (Auto) 86.4 H, Lymph % (Auto) 9.7 L, Johnston % (Auto) 3.5, Eos % (Auto) 0.2, Baso % (Auto) 0.2, Neut # (Auto) 14.8 H, Lymph # (Auto) 1.7, Johnston # (Auto) 0.6, Eos # (Auto) 0.0, Baso # (Auto) 0.0 I & O for Labs for Last 24 Hours: Intake & Output 12/13/23 12/14/23 12/15/23 12/16/23 23:59 23:59 23:59 23:59 Intake Total 1000 / 1000 Output Total 1800 / 1800 Balance -800 / -800 Weight 158 lb 5.286 oz Head: Present atraumatic and normocephalic ENT: Present mucous membranes moist Neck: Present normal inspection and full ROM Respiratory: Present CTA bilaterally and normal respiratory effort Cardiac: Present Reg Rate and Rhythm GI: Present soft and normal bowel sounds; Absent distention, tenderness or guarding Comments:: Uterine fundus firm and below umbilicus, pfannenstiel incision clean/dry/intact Rectal (female): Present deferred (female): Present deferred Extremities: Present full ROM and edema (+1 bilateral lower extremity edema); Absent calf tenderness Neuro: Present alert, awake and moves all extremities Assessment and Plan *Assessment and plan (1) S/P section: Status: Acute Category: Surgical Code(s): Z98.891 - History of uterine scar from previous surgery (2) 38 weeks gestation of : Status: Acute Category: Medical Code(s): Z3A.38 - 38 weeks gestation of (3) Gestational hypertension: Status: Acute Qualifiers: Trimester: third trimester Qualified Code(s): O13.3 - Gestational [-induced] hypertension without significant proteinuria, third trimester Category: Medical Code(s): O13.9 - Gestational [-induced] hypertension without significant proteinuria, unspecified trimester (4) Premature rupture of membranes: Status: Acute Qualifiers: PROM onset of labor timing: unspecified duration between rupture of membranes and onset of labor PROM gestational age: full term Qualified Code(s): O42.92 - Full-term premature rupture of membranes, unspecified as to length of time between rupture and onset of labor Category: Medical Code(s): O42.90 - Premature rupture of membranes, unspecified as to length of time between rupture and onset of labor, unspecified weeks of gestation (5) Acute blood loss anemia: Status: Acute Category: Medical Code(s): D62 - Acute posthemorrhagic anemia Plan Continue routine care Encouraged increased ambulation Venofer 200 mg IV x 1 dose Continue Procardia. Continue to monitor BP Plan d/c home POD # 3
[2023-12-16] MEDS: METOPROLOL SUCCINATE XL 25MG TABLET 25 MG PO (08:33)
[2023-12-16] MEDS: SENNA 8.6MG TABLET 8.59999999999999964 MG PO (08:33)
[2023-12-16] MEDS: IRON SUCROSE COMPLEX 200 MG in 0.9 % SODIUM CHLORIDE 100 ML 220 MG IV (09:10)
[2023-12-16 09:14] LABS: Lymphocytes % 5 % (10-50); Monocytes % 2 % (2-9); Neutrophils % 93 % (42-76); Total Cells Counted 100
[2023-12-16 09:15] LABS: Platelet Estimate Normal; RBC Morphology Normal
[2023-12-16] MEDS: DESVENLAFAXINE SUCCINATE 50 MG 50 EACH PO (09:42)
[2023-12-16 15:50] VITALS: BP 141/84; PULSE 78; RESP 18; TEMP 36.8; O2SAT 99
[2023-12-16] MEDS: PRENATAL MULTIVITAMIN W/IRON 1 EACH PO (16:59)
[2023-12-16] MEDS: IBUPROFEN 400 MG TABLET 800 MG PO (18:28)
[2023-12-16 20:01] VITALS: BP 133/82; PULSE 86; RESP 18; TEMP 36.9; O2SAT 100
[2023-12-17] MEDS: IBUPROFEN 400 MG TABLET 800 MG PO ×3 (02:30→17:50)
[2023-12-17 04:00] VITALS: BP 127/77; PULSE 85; RESP 18; TEMP 36.8; O2SAT 98
[2023-12-17] MEDS: OXYCODONE 5MG IMMEDIATE RELEASE TABLET 5 MG PO ×2 (04:10→08:01)
[2023-12-17 08:00] VITALS: BP 132/81; PULSE 93; RESP 18; TEMP 36.8; O2SAT 96
[2023-12-17] MEDS: NIFEdipine XL 30MG TABLET 30 MG PO (08:01)
[2023-12-17] MEDS: DESVENLAFAXINE SUCCINATE 50 MG 50 EACH PO (08:01)
[2023-12-17] MEDS: METOPROLOL SUCCINATE XL 25MG TABLET 25 MG PO (08:01)
--- NOTE | 2023-12-17 11:00 | P.PN_ITS ---
Subjective *Date: 12/17/23 *Time: 11:00 Interval history: POD # 2 s/p PLTCS Faviola is feeling well this morning. Pain controlled. Breast feeding. Light lochia. Voiding without difficulty. Passing flatus. Tolerating regular diet. Denies fever/chills, chest pain and shortness of breath. No headaches, vision chagnes, lightheadedness/dizziness. Admits to mild lower extremity swelling. No calf pain. Ambulating well adl ib. Medical Exam Vital signs and Labs for Last 24 Hours: Vital Signs Temp Pulse Resp BP Pulse Ox O2 Del Method 12/17/23 08:00 98.2 F 93 H 18 132/81 96 Room Air 12/17/23 04:00 98.2 F 85 18 127/77 98 Room Air 12/16/23 20:01 98.5 F 86 18 133/82 100 Room Air 12/16/23 15:50 98.2 F 78 18 141/84 H 99 Room Air Laboratory Results - last 24 hr 12/14/23 09:35: Crossmatch (AHG) See Detail I & O for Labs for Last 24 Hours: Intake & Output 12/14/23 12/15/23 12/16/23 12/17/23 23:59 23:59 23:59 23:59 Intake Total 1000 / 1000 Output Total 1800 / 1800 Balance -800 / -800 Weight 158 lb 5.286 oz Head: Present atraumatic and normocephalic ENT: Present mucous membranes moist Neck: Present normal inspection Respiratory: Present CTA bilaterally and normal respiratory effort Cardiac: Present Reg Rate and Rhythm GI: Present soft and normal bowel sounds; Absent distention or tenderness Comments:: Uterine fundus firm and below umbilicus, pfannenstiel incision clean/dry/intact with steri strips Rectal (female): Present deferred (female): Present deferred Extremities: Present full ROM and edema (trace bilateral lower extremity edema); Absent calf tenderness Neuro: Present alert, awake and moves all extremities Assessment and Plan *Assessment and plan (1) S/P section: Status: Acute Category: Surgical Code(s): Z98.891 - History of uterine scar from previous surgery (2) 38 weeks gestation of : Status: Acute Category: Medical Code(s): Z3A.38 - 38 weeks gestation of (3) Premature rupture of membranes: Status: Acute Qualifiers: PROM onset of labor timing: unspecified duration between rupture of membranes and onset of labor PROM gestational age: full term Qualified Code(s): O42.92 - Full-term premature rupture of membranes, unspecified as to length of time between rupture and onset of labor Category: Medical Code(s): O42.90 - Premature rupture of membranes, unspecified as to length of time between rupture and onset of labor, unspecified weeks of gestation (4) Gestational hypertension: Status: Acute Qualifiers: Trimester: third trimester Qualified Code(s): O13.3 - Gestational [-induced] hypertension without significant proteinuria, third trimester Category: Medical Code(s): O13.9 - Gestational [-induced] hypertension without significant prot einuria, unspecified trimester (5) Chronic hypertension affecting : Status: Acute Category: Medical Code(s): O10.919 - Unspecified pre-existing hypertension complicating , unspecified trimester (6) Acute blood loss anemia: Status: Acute Category: Medical Code(s): D62 - Acute posthemorrhagic anemia Plan Continue routine care Encouraged increased ambulation Plan d/c home tomorrow, POD # 3
[2023-12-17] MEDS: ACETAMINOPHEN 500MG TAB 1000 MG PO ×3 (11:58→23:34)
[2023-12-17] MEDS: PRENATAL MULTIVITAMIN W/IRON 1 EACH PO (17:50)
[2023-12-17] MEDS: LANOLIN CREAM 40GM TP (17:53)
[2023-12-17 20:20] VITALS: BP 145/78; PULSE 66; RESP 16; TEMP 36.6; O2SAT 98
[2023-12-18] MEDS: IBUPROFEN 400 MG TABLET 800 MG PO (02:26)
[2023-12-18 04:00] VITALS: BP 129/83; PULSE 86; RESP 16; TEMP 36.6; O2SAT 98
[2023-12-18] MEDS: ACETAMINOPHEN 500MG TAB 1000 MG PO (07:01)
--- NOTE | 2023-12-18 07:23 | EXP.ANES.II ---
[facility] Anesthesia Record Part II Anesthesia Record Part II Discharge Time: 18:58 Destination: Obstetric PACU nurse assessment reviewed?: Yes Patient Condition:: Good Anesthesia Complications:: None Swallowing reflex intact?: Yes Airway Patency: Patent Cyanosis?: No Blood Pressure: 153/78 SaO2: 98 Respiratory Rate: 16 Pulse Rate: 102 Temperature: 98.1 F Mental Status: Alert & Oriented Pain level:: 0 Nausea and/or vomitting:: None Intake, IV Amount: 1,000 Hydration: Adequate
[2023-12-18 07:24] VITALS: BP 153/78; PULSE 102; RESP 16; TEMP 36.7; O2SAT 98
[2023-12-18 08:10] VITALS: BP 132/77; PULSE 88; RESP 18; TEMP 36.5; O2SAT 98
[2023-12-18] MEDS: NIFEdipine XL 30MG TABLET 30 MG PO (08:12)
[2023-12-18] MEDS: METOPROLOL SUCCINATE XL 25MG TABLET 25 MG PO (08:13)
[2023-12-18] MEDS: DESVENLAFAXINE SUCCINATE 50 MG 50 EACH PO (08:13)
--- NOTE | 2023-12-18 08:19 | P.DS_ITS ---
General Admission date:: 12/14/23 Discharge date: 12/18/23 HPI HPI HPI: POD # 3 s/p PLTCS Faviola is feeling well. Pain controlled. Breast feeding. Light lochia. Voiding without difficulty. Passing flatus. Tolerating regular diet. Denies fever/chills, chest pain and shortness of breath. No headaches, vision chagnes, lightheadedness/dizziness. Admits to mild lower extremity swelling. No calf pain. Ambulating well adl ib. Hospital Course Hospital Course Hospital Course: Faviola Rodriguez is a 22-year-old who presented to labor and delivery at 38w1d gestation. STEPHANY: 12/27/23 based on LMP c/w 8wk US. She came to L&D secondary to leakage of clear fluid around 630 on 12/14/23. This has been complicated by a cardiac arrhythmia which she took 25 mg of metoprolol daily, and depression which was well-controlled with desvenlafaxine 50 mg daily. On arrival to L&D, Amnisure was positive. On admission exam, cervix was 1/50/-3. Labor was augmented with Cytotec and Pitocin. She progressed to complete, 0 station. She pushed for 2 hours without any decent. Decision was made to proceed with primary secondary to failure to descend and CPD. She underwent a primary on 12/15/23. She delivered a live male baby, Channing, weighing 7 lb 3 oz. APGARs 8 (1 min), 9 (5 min). EBL 650 mL. She did well /postoperatively. Pain controlled. Breast feeding. Light lochia. Voiding without difficulty and passing flatus. Tolerating regular diet. Denies fever/chills, chest pain and shortness of breath. No headaches, dizziness/lightheadedness or vision changes. Vital signs stable, afebrile. Heart regular rate and rhythm. Lungs clear to auscultation. Abdomen soft, nontender. She had +1 bilateral lower extremity edema. No calf tenderness to palpation. Ambulating well ad jenni. She received Venofer 200 mg IV x 1 dose for acute blood loss anemia on POD # 1. Normal hospital course. She was discharged to home on POD # 3 with instructions to follow-up in the office in 2 weeks or sooner if needed. Exam Data for Last 24 hours Vital signs and Labs for Last 24 Hours: Temp Pulse Resp BP Pulse Ox O2 Del Method 97.9 F 86 16 129/83 98 Room Air 12/18/23 04:00 12/18/23 04:00 12/18/23 07:24 12/18/23 04:00 12/18/23 04:00 12/18/23 04:00 Laboratory Results - last 24 hr 12/14/23 09:35: Crossmatch ([facility]) See Detail I & O for Last 24 hours: Intake & Output 12/15/23 12/16/23 12/17/23 12/18/23 23:59 23:59 23:59 23:59 Intake Total 1000 / 1000 1000 / 1000 Output Total 1800 / 1800 Balance -800 / -800 1000 / 1000 Constitutional Constitutional: no acute distress and cooperative *Routine HEENT Exam Head: Present normocephalic and atraumatic Eye: Absent conjunctivae pink ENT: Present mucous membranes moist *Routine Neck Exam Neck: Present full ROM *Routine Respiratory Exam Respiratory: Present CTA bilaterally and normal respiratory effort *Routine Cardiovascular Exam Cardiovascular: Present RRR *Routine Abdominal Exam Abdominal: Present soft and normoactive bowel sounds; Absent tenderness or distended Comments: Pfannenstiel incision clean/dry/intact with steri strips *Routine Rectal Exam Patient deferred: visual exam *Routine Exam Patient deferred: external exam *Routine Extremities Exam Extremities: Present edema (+1 bilateral lower extremity swelling) and full ROM; Absent calf tenderness *Routine Neurological Exam Neurological: Present alert, moving all extremities and normal speech Routine Psychiatric Exam Psychiatric: Present normal affect and cooperative Results Data Completed and Pending Labs on day of discharge: Labs from last 24 hours 12/14/23 09:35 Crossmatch ([facility]) See Detail DS: Diagnosis Discharge Diagnosis (1) S/P section: Status: Acute Code(s): Z98.891 - History of uterine scar from previous surgery (2) 38 weeks gestation of : Status: Acute Code(s): Z3A.38 - 38 weeks gestation of (3) Premature rupture of membranes: Status: Acute Code(s): O42.90 - Premature rupture of membranes, unspecified as to length of time between rupture and onset of labor, unspecified weeks of gestation Qualifiers: PROM gestational age: full term PROM onset of labor timing: unspecified duration between rupture of membranes and onset of labor Qualified Code(s): O42.92 - Full-term premature rupture of membranes, unspecified as to length of time between rupture and onset of labor (4) Gestational hypertension: Status: Acute Code(s): O13.9 - Gestational [-induced] hypertension without significant proteinuria, unspecified trimester Qualifiers: Trimester: third trimester Qualified Code(s): O13.3 - Gestational [-induced] hypertension without significant proteinuria, third trimester (5) Chronic hypertension affecting : Status: Acute Code(s): O10.919 - Unspecified pre-existing hypertension complicating , unspecified trimester (6) Acute blood loss anemia: Status: Acute Code(s): D62 - Acute posthemorrhagic anemia Meds Home Medications and Allergies Home Medications Medication Instructions Recorded Confirmed Type desvenlafaxine succinate 50 mg 50 mg PO DAILY 04/12/23 12/14/23 History tablet,extended release 24 hr [id number]-FA-Ca carb-vit K 1 tab PO DAILY 05/16/23 12/14/23 History 18 mg iron-400 mcg-500 mg tablet (One-A-Day Womens Formula) metoprolol succinate 50 mg 25 mg PO DAILY 08/25/23 12/14/23 History tablet,extended release 24 hr ibuprofen 800 mg tablet 800 mg PO Q8H PRN pain #20 tabs 12/17/23 Rx nifedipine 30 mg tablet,extended 30 mg PO DAILY #30 tabs 12/17/23 Rx release 24 hr oxycodone 5 mg tablet 5 mg PO Q4-6H PRN Moderate Pain 12/17/23 Rx (4-6) #15 tabs New Prescriptions to Start Prescriptions: ibuprofen Vanessa Hdz nifedipine Vanessa Hdz oxycodone Vanessa Hdz Allergies Allergy/AdvReac Type Severity Reaction Status Date / Time No Known Allergies Allergy Verified 12/08/23 11:31 Discharge Plan Disposition Patient Disposition: Home, Self-Care Condition: Good Discharge Order Discharge Orders: Discharge Order (Routine); Ordered 12/18/23 Ordered By: Vanessa Hdz Follow up Plan Follow up with: Amanda Hahn DO [Staff Physician] - 12/28/23 3:15 pm Prescriptions/Medication Reconciliation: New nifedipine 30 mg Tablet Extended Release 24hr 30 mg PO DAILY Qty: 30 0RF oxycodone 5 mg Tablet 5 mg PO Q4-6H PRN (Reason: Moderate Pain (4-6)) Qty: 15 0RF ibuprofen 800 mg tablet 800 mg PO Q8H PRN (Reason: pain) Qty: 20 0RF Continued desvenlafaxine succinate 50 mg tablet extended release 24 hr 50 mg PO DAILY metoprolol succinate 50 mg tablet extended release 24 hr 25 mg PO DAILY Patient Comments: TAKE ONE TABLET BY MOUTH EVERY DAY One-A-Day Womens Formula 18 mg iron-400 mcg-500 mg tablet 1 tab PO DAILY Discontinued aspirin [Adult Low Dose Aspirin] 81 mg tablet,delayed release (DR/EC) 81 mg PO DAILY Problem Reconciliation Problems Reviewed?: Yes Patient Discharge Instructions ACTIVITY: Limited activity DIET: continue same diet and regular diet Additional Instructions: Discharge: 1. Take 800 mg Ibuprofen every 8 hours as needed for pain. You can also take 500-1000 mg of Tylenol in between doses, every 6-8 hours. If pain persists you can take Oxycodone 5 mg, 1 tablet every 4-6 hours or more as needed. 2. Nothing in the vagina for 6 weeks - no intercourse, douching or tampons. No tub baths/hot tubs or swimming pools - Drink plenty of fluids. - No strenuous activity or driving until released by your doctor. - Don't lift anything heavier than your . 3. Reasons to return to L&D or call On-Call doctor - fever (greater than 100.4) - heavy vaginal bleeding (soaking through 1 pad in less than 2 hours) - vaginal discharge (malodorous and/or purulent) - severe headaches not resolved by medication or rest and leg tenderness/edema 4. depression/blues - Normal to feel anxious/overwhelmed for first 2 weeks - Talk to your doctor if: severe anxiety, trouble bonding with baby, withdrawing from other family members, thoughts of harming yourself or others Patient Instructions: Depression, Hemorrhage, DI for , DI for Pre-eclampsia, [facility] Post Discharge Instructions Providers Primary Care Provider: Jama Carrera Admit Provider: Amanda Hahn Attending Provider: Amanda Hahn
== END 2023-12-18 10:09 | disposition home or self-care (01) | DRG 786 ==
LOC: OBOUT 09:04 → OB 09:04
PROVIDERS: Admitting Provider Obstetrics & Gynecology; PCP Family Medicine; Visit Provider Obstetrics & Gynecology
PROC: 10D00Z1 Extraction of Products of Conception, Low, Open Approach (ICD-10-PCS; CPT 59514; principal; 2023-12-15 17:00)
DX: O42.12 Full-term premature rupture of membranes, onset of labor more than 24 hours following rupture (principal); O99.42 Diseases of the circulatory system complicating childbirth; D62 Acute posthemorrhagic anemia; Z3A.38 38 weeks gestation of pregnancy; Z37.0 Single live birth; O13.4 Gestational [pregnancy-induced] hypertension without significant proteinuria, complicating childbirth; O99.344 Other mental disorders complicating childbirth; F32.A Depression, unspecified; F41.9 Anxiety disorder, unspecified; O62.0 Primary inadequate contractions; Z3A.00 Weeks of gestation of pregnancy not specified; O90.81 Anemia of the puerperium
CPT/HCPCS: 59514; 36415; 59025; 80053; 80307; 81001; 84112; 85007; 85025; 86850; 94761; C9290; G0283; J0456; J1756; J2405

== ENCOUNTER 2024-05-23 10:20 | Emergency (ER) | payer OTHER, SELFPAY ==
--- NOTE | 2024-05-23 11:17 | ED_ITS ---
Discharge Plan Disposition Patient Disposition: Home, Self-Care Condition: Good Prescriptions Prescriptions: New cephalexin 500 mg capsule 500 mg PO QID 7 Days Qty: 28 0RF No Action desvenlafaxine succinate 50 mg tablet extended release 24 hr 50 mg PO DAILY metoprolol succinate 50 mg tablet extended release 24 hr 25 mg PO DAILY Patient Comments: TAKE ONE TABLET BY MOUTH EVERY DAY Mirena 21 mcg/24 hr (8 yrs) 52 mg intrauterine device 21 mcg intrauterine ONCE Referrals Follow up/Referrals: Jama Carrera MD [Primary Care Provider] - See instructions Activity Restrictions/Add. Instructions Additional Instructions/Restrictions: Drink plenty of fluids. Take tylenol for pain or fever. Take the medications as directed. Follow up with your regular doctor. GO TO THE ER FOR ANY WORSENING SYMPTOMS We will culture the urine. That will tell what bacteria is causing your infection and which antibiotics will treat it best.This test takes 3 days to complete. The cephalexin is safe for you to take while you are . Clinical Impressions Clinical Impression: UTI (urinary tract infection) Stand Alone Forms Stand Alone Forms: Work/School Release Instructions Patient Instructions: Urinary Tract Infection, Urine Culture, DI for Urinary Tract Infection (UTI), Cephalexin Print Language Print Language: Lithuanian Discharge ED Provider: Tang Ward [facility] [place] [facility] HPI General Stated complaint: burning when urinating, yellow color Time Seen by Provider: 05/23/24 11:17 History of Present Illness Provider Complaint: She states that for the past 3 days she has had dysuria, urinary frequency, and low back pain. She has a history of getting UTIs kind of frequently and that is what she feels like is happening now. She is breast feeding her 4 month old baby. Related Data Home Medications ?Medication ?Instructions ?Recorded ?Confirmed desvenlafaxine succinate 50 mg 50 mg PO DAILY 04/12/23 05/23/24 tablet,extended release 24 hr metoprolol succinate 50 mg 25 mg PO DAILY 08/25/23 05/23/24 tablet,extended release 24 hr levonorgestrel 21 mcg/24 hr (up to 21 mcg intrauterine ONCE 02/29/24 05/23/24 8 years) 52 mg intrauterine device (Mirena) Previous Rx's ?Medication ?Instructions ?Recorded cephalexin 500 mg capsule 500 mg PO QID 7 days #28 caps 05/23/24 Allergies Allergy/AdvReac Type Severity Reaction Status Date / Time No Known Allergies Allergy Verified 05/14/24 15:43 [facility] Disclaimer: The information contained in this section may have been updated after the patient was seen, as this information can be updated by other users. Medical History Acute blood loss anemia Hypertension Depression Anxiety Surgical History S/P section History of placement of ear tubes History of tonsillectomy and adenoidectomy Family History Grandfather Hypertension Father Hypospadias Brother Hypospadias Other Cancer Thyroid disorder Social History Smoking Status: Never smoker alcohol intake: never substance use type: denies use current occupational status: employed Travel in the last 8 weeks: None ROS Obtained: Yes All systems reviewed & no additional complaints except as documented Constitutional Constitutional: Reports system reviewed and no additional complaints, except as documented, Denies chills and Denies fever(s) Eyes Eyes: Denies eye discharge ENT Ears, Nose, Mouth, and Throat: Denies dysphagia, Denies sore throat and Denies throat swelling Cardiovascular Cardiovascular: Denies chest pain and Denies dyspnea Respiratory Respiratory: Denies chest congestion, Denies cough and Denies dyspnea Gastrointestinal Gastrointestingal: Denies abdominal pain, constipation, diarrhea, dysphagia, nausea or vomiting Genitourinary Female Genitourinary: Reports as per HPI, Reports dysuria, Reports urinary frequency, Denies urinary incontinence, Reports urinary hesitancy and Reports urinary urgency Musculoskeletal Musculoskeletal: Denies arthralgias and Reports back pain Integumentary/Breasts Skin/Breast: Denies rash Neurologic Neurologic: Denies paresthesias Allergic/Immunologic Allergic/Immunologic: Denies throat swelling Physical Exam General General appearance: alert and in no apparent distress Head Head exam: atraumatic and normocephalic Eye Eye exam: Present normal appearance, PERRL and EOMI ENT ENT exam: Present normal exam, mucous membranes moist, TM's normal bilaterally and normal external ear exam Neck Neck exam: Present normal inspection, full ROM and trachea midline; Absent ten derness, meningismus or lymphadenopathy Chest Chest inspection: Present normal inspection and symmetric chest wall rise; Absent tenderness Respiratory Respiratory exam: Present normal lung sounds bilaterally; Absent respiratory distress, wheezes or stridor Cardiovascular Cardiovascular exam: Present regular rate, normal rhythm and normal heart sounds Abdominal Exam Abdominal exam: Present soft and normal bowel sounds; Absent distention, tenderness, guarding, rebound, rigidity, incision, psoas sign, obturator sign, heel tap sign, 's sign, Rovsing's sign or tenderness at McBurney's Point Extremities Exam Extremities exam: Present normal inspection, full ROM and normal capillary refill; Absent tenderness, edema, joint swelling, calf tenderness or cyanosis Back Exam Back exam: Present normal inspection and full ROM; Absent tenderness, CVA tenderness (R) or CVA tenderness (L) Neurological Exam Neurological exam: Present alert, oriented X3 and normal gait Psychiatric Psychiatric exam: Present normal affect and normal mood Skin Skin exam: Present warm, dry, intact and normal color Lymphatic Lymphatic Findings: no adenopathy Medical Decision Making Medical Records Medical records reviewed: No I reviewed the patient's medical records. Screening: Per USPSTF and CDC recommendations, given the prevalence of disease in our region, it is our hospital?s policy to screen for HIV and viral Hepatitis for all patients aged 18 and over and those with ongoing risk factors. [place] Inquiry Pt receiving controlled substance: No Lab Data Lab results reviewed: Yes I reviewed the patient's lab results.
[2024-05-23 11:25] VITALS: BP 113/77; PULSE 81; RESP 20; TEMP 37; O2SAT 99; BMI 25.3
[2024-05-23 11:26] LABS: Microscopic, Urine URINE MICROSCOPIC (MICROSCOPIC)
[2024-05-23 11:34] LABS: Appearance,Urine SL CLOUDY (Clear); Bilirubin,Urine Negative (Negative); Blood, Urine Negative (Negative); Color,Urine YELLOW (Yellow); Glucose,Urine (UA) Negative (Negative); Ketones,Urine Negative (Negative); Leukocyte Esterase,Urine 1+ (Negative); Nitrate,Urine Negative (Negative); Protein,Urine Negative (Negative); Specific Gravity, Urine 1.025 (1.005-1.030); Urobilinogen,Urine 0.2 EU/dl (0.2)
[2024-05-23 11:57] LABS: Bacteria,Urine Trace /lpf
[2024-05-23 12:02] VITALS: BP 113/77; PULSE 81; RESP 20; TEMP 37
== END 2024-05-23 12:02 | disposition home or self-care (01) ==
PROVIDERS: Emergency Provider Nurse Practitioner Family; PCP Family Medicine
DX: N39.0 Urinary tract infection, site not specified (principal)
CPT/HCPCS: 81001; 87086; 87088; 87186; 99213; G0381